=== PATIENT | female | born 1985 | race Caucasian/White ===

== ENCOUNTER 2016-05-21 20:38 | Emergency (ER) | payer MEDICAID ==
[~2016-05-21] VITALS: Ht 154.9 cm; Wt 81.6 kg
[2016-05-21 21:29] VITALS: BP 140/86
[2016-05-21] MEDS ORDERED: ONDANSETRON 4 MG TAB.RAPDIS SL ONE (22:00)
[2016-05-21] MEDS ORDERED: HYDROCODONE/APAP 5/325MG 1 EACH TABLET PO ONE (22:00)
[2016-05-21 22:33] LABS: KETONES,URINE NEGATIVE (NEGATIVE); LEUKOCYTE ESTERASE ,URINE TRACE (NEGATIVE)
[2016-05-21 22:34] LABS: ADD UA MICROSCOPIC YES
[2016-05-21] MEDS ORDERED: ONDANSETRON 4 MG TAB.RAPDIS ONE (22:44)
[2016-05-21] MEDS ORDERED: HYDROCODONE/APAP 5/325MG 1 EACH TABLET ONE (22:44)
[2016-05-21 22:45] LABS: ADD URINE CULTURE NO; RBC,URINE 0-2 /HPF (0-2); WBC,URINE 0-2 /HPF (0-3)
[2016-05-21 22:48] LABS: PREGNANCY TEST URINE QUAL NEGATIVE (NEGATIVE)
== END 2016-05-21 23:59 | disposition home or self-care (01) ==
LOC: ER 20:43
DX: S09.90XA Unspecified injury of head, initial encounter (principal); S16.1XXA Strain of muscle, fascia and tendon at neck level, initial encounter; S70.02XA Contusion of left hip, initial encounter; N85.9 Noninflammatory disorder of uterus, unspecified; R11.2 Nausea with vomiting, unspecified; W01.0XXA Fall on same level from slipping, tripping and stumbling without subsequent striking against object, initial encounter; Y93.89 Activity, other specified; Y92.89 Other specified places as the place of occurrence of the external cause; Y99.8 Other external cause status
CPT/HCPCS: 70450; 72125; 73503; 81001; 84703; 99285; A4606; Q0162; Z7610; 73510-TC; 81000-TC